=== PATIENT | male | born 1960 ===

== ENCOUNTER 2023-11-27 02:22 | Inpatient (IN) | payer OTHER, SELFPAY ==
[2023-11-27] MEDS ORDERED: Ipratropium/Albuterol 3 ML NEB ONE (02:54)
[2023-11-27 03:36] LABS: Base Excess -12.5 mEq/L (-2.0 to +3.0); Hematocrit-VBG 30 % (42.0-52.0); Hemoglobin (Hb) 10.2 g/dL (13.1-17.2); pH (venous) 7.292 (7.32-7.43)
[2023-11-27 03:37] LABS: Chloride (VBG) 105 mmol/L (98-106); Sodium 134 mmol/L (133-146)
[2023-11-27 03:38] LABS: Actual Bicarbonate (HCO3v) 12.6 mEq/L (22-28)
[2023-11-27] MEDS ORDERED: Ibuprofen 200 MG TAB ONE (03:45)
[2023-11-27 03:54] LABS: Hemoglobin 9.2 g/dL (14.0-18.0); Manual Diff?? YES; Mean Corpuscular HGB CONC 31.7 g/dL (32.0-36.0); Mean Corpuscular Hemoglobin 33.6 pg (27.0-31.0); Mean Corpuscular Volume 105.8 fl (78.0-98.0); Mean Platelet Volume 12.1 fL (7.4-10.4); Red Blood Cell (RBC) Count 2.74 mill/uL (4.70-6.10); White Blood Cell (WBC) Count 8.4 10x3/uL (4.8-10.8)
[2023-11-27 04:17] LABS: ALT (SGPT) 60 U/L (8-55); AST (SGOT) 63 U/L (5-34); Albumin 1.6 g/dL (3.4-4.8); Alkaline Phosphatase 103 U/L (40-110); Anion Gap 19 mmol/L (10-20); BUN (Urea Nitrogen) 47 mg/dL (8.4-25.7); Bilirubin, Total 9.7 mg/dL (0.2-1.2); Calc. Creatinine Clearance 0 mL/min (70-130); Carbon Dioxide 12 mmol/L (23-31); Chloride 106 mmol/L (98-107); Estimated GFR 31; Globulin 3.6 g/dL (2.4-3.5); Lipase 46 U/L (8-78); Magnesium 1.4 mg/dL (1.6-2.6); Protein, Total 5.2 g/dL (5.8-8.1); Sodium 133 mmol/L (136-145)
[2023-11-27 04:18] LABS: Troponin I 0.063 ng/mL (< 0.028)
[2023-11-27 04:21] LABS: Critical Call Chem-Lactate NUR.JLS2@0421; Critical Call Chemistry NUR.JLS2@0421; Glucose 50 mg/dL (80-115)
[2023-11-27] MEDS ORDERED: Dextrose 10% in Water 250 ML ONE ×2 (04:26→06:36)
[2023-11-27 04:28] LABS: SARS-CoV-2 NAA Rapid Test DETECTED (NotDetected)
[2023-11-27] MEDS ORDERED: NOREPINEPHRINE 8 MG/250 ML-D5W 250 ML ONE (04:54)
[2023-11-27] MEDS ORDERED: Sodium Chloride 0.9% 100 ML ONE (04:55)
[2023-11-27] MEDS ORDERED: Cefepime 2 GM VIAL ONE (04:55)
[2023-11-27 05:45] LABS: Delete Auto Diff?? YES
[2023-11-27 06:18] LABS: Anisocytosis MODERATE=16-30 cells HPF (0-5); Band 7 % (5-11); Burr Cells MARKED = >16 cells HPF (0-1); CellaVision Operator ID LAB.JMM; Eosinophils 1 % (0-10); Large Platelets 5.7 % (0-5); Lymphocytes 7 % (21-51); Macrocytosis MODERATE=16-30 cells HPF (0-5); Metamyelocyte 24 % (0-0); Monocytes 4 % (0-10); Myelocyte 13 % (0-0); Neutrophil 42 % (42-75); Nucleated RBC (Manual Ct) 1 % (0); Platelet Adequacy Comment Significant decrease; Platelet Count 47 10x3/uL (130-400); Poikilocytosis MARKED = >30 cells HPF (0-5); Polychromasia MODERATE = 3-4 cells HPF (0-2); RBC Morphology 2; Reactive Lymphocytes 3 % (0-10); Total Cell Count 123
[2023-11-27] MEDS ORDERED: Dextrose 5% in Water 1,000 ML IV PRN (06:26)
[2023-11-27] MEDS ORDERED: Glucagon 1 MG/ML KIT IM PRN (06:26)
[2023-11-27] MEDS ORDERED: Vancomycin 1 GM/200 ML (FROZEN) BAG ONE (06:26)
[2023-11-27] MEDS ORDERED: NOREPINEPHRINE 8 MG/250 ML-D5W 250 ML IVPB SCH ×2 (06:30→08:05)
[2023-11-27] MEDS ORDERED: DOPamine 400 MG/D5W 250 ML 250 ML ONE ×2 (06:33→14:57)
[2023-11-27] MEDS ORDERED: Hydrocortisone Sod Succ/PF 100 mg/2 ml Vial ONE (06:33)
[2023-11-27 07:09] LABS: Critical Call Chem-Lactate NUR.JLS2@0707; Lactic Acid 8.2 mmol/L (0.5-2.2)
[2023-11-27] MEDS ORDERED: DOPamine 400 MG/D5W 250 ML 250 ML IVPB SCH ×5 (07:15→15:30)
[2023-11-27 07:16] LABS: Troponin I 0.029 ng/mL (< 0.028)
[2023-11-27] MEDS ORDERED: Vasopressin 20 UNITS in Sodium Chloride 0.9% 50 ML IV PRN (07:51)
[2023-11-27] MEDS ORDERED: Electrolyte Replacement Protocol 1 EACH IVPB ONE (07:51)
[2023-11-27] MEDS ORDERED: Ipratropium/Albuterol 3 ML NEB NEB PRN (07:58)
[2023-11-27] MEDS ORDERED: Dextrose 10% in Water 1,000 ML IV SCH (08:00)
[2023-11-27] MEDS ORDERED: Furosemide 40 MG (4 mL) VIAL SLOW IVP SCH ×2 (08:00→14:00)
[2023-11-27] MEDS ORDERED: Sodium Bicarb 50 mEq/50 ML VIAL IVP SCH (08:00)
[2023-11-27] MEDS ORDERED: Vasopressin 20 UNITS in Sodium Chloride 0.9% 50 ML IV SCH (08:00)
[2023-11-27] MEDS ORDERED: Hydrocortisone Sod Succ/PF 100 mg/2 ml Vial IVP SCH ×2 (08:00→14:00)
[2023-11-27] MEDS ORDERED: Magnesium 2 GM/50 ML(in water) 4 GM in Premix 1 BAG IVPB SCH (08:00)
[2023-11-27] MEDS ORDERED: Sodium Bicarb 50 mEq/50 ML VIAL ONE ×2 (08:07→13:54)
[2023-11-27] MEDS ORDERED: DOBUTamine 500 mg/250 ml 250 ML ONE (08:12)
[2023-11-27] MEDS ORDERED: DOBUTamine 500 mg/250 ml 250 ML IVPB SCH (08:15)
[2023-11-27] MEDS ORDERED: Albumin 25% 25 GM (100 mL) BOT IVPB SCH (08:15)
[2023-11-27 08:30] VITALS: BMI 39.9
[2023-11-27] MEDS ORDERED: Magnesium Sulfate In Water 4 GM in Premix 1 BAG IVPB SCH (08:30)
[2023-11-27] MEDS ORDERED: DOBUTamine 500 mg/250 ml 500 MG in Premix 1 BAG IVPB SCH (08:30)
[2023-11-27] MEDS ORDERED: Heparin 5,000 UNITS/ML VIAL SC SCH (09:00)
[2023-11-27] MEDS ORDERED: Electrolyte Replacement Protocol FS PRN (09:15)
[2023-11-27] MEDS ORDERED: REMDESIVIR 200 MG in Sodium Chloride 0.9% 250 ML 210 ML IV SCH (09:15)
[2023-11-27] MEDS ORDERED: Vancomycin (BATCH) 1.5 GM in Premix 1 BAG IVPB SCH (09:15)
[2023-11-27] MEDS ORDERED: Piperacillin/Tazobactam 4.5 GM in Sodium Chloride 0.9% 100 ML IVPB SCH (09:37)
[2023-11-27 09:51] LABS: Prothrombin Time 54.2 sec (12.0-14.7)
[2023-11-27 09:53] LABS: PTT 41.3 sec (22.9-36.1)
[2023-11-27] MEDS ORDERED: Piperacillin/Tazobactam 3.375 GM in Sodium Chloride 0.9% 100 ML IVPB SCH ×2 (10:00→14:00)
[2023-11-27] MEDS: NOREPINEPHRINE 8 MG/250 ML-D5W 250 ML IVPB SCH ×4 (10:09→18:06)
[2023-11-27 10:13] LABS: D-Dimer Test 10.59 *mcg/mL (0.27-0.43)
[2023-11-27 10:29] LABS: Fibrinogen 39 mg/dL (253-463)
[2023-11-27] MEDS ORDERED: Lorazepam 2 MG/ML VIAL SLOW IVP PRN (10:59)
[2023-11-27] MEDS ORDERED: Lorazepam 2 MG/ML VIAL SLOW IVP SCH (11:00)
[2023-11-27 11:09] LABS: Glucose 43 mg/dL (80-115)
[2023-11-27] MEDS ORDERED: fentaNYL 50 mcg/mL 1 mL Vial SLOW IVP PRN (11:31)
[2023-11-27] MEDS: Dextrose 50% Abboject 50 ML SYRINGE SLOW IVP PRN ×2 (11:35→14:44)
[2023-11-27] MEDS ORDERED: fentaNYL 50 mcg/mL 1 mL Vial SLOW IVP SCH (11:45)
[2023-11-27] MEDS: Albumin 25% 25 GM (100 mL) BOT IVPB SCH ×2 (11:51→17:13)
[2023-11-27] MEDS ORDERED: Scopolamine 1 mg/72 hour Patch TD SCH (12:00)
[2023-11-27] MEDS ORDERED: Cefepime 2 GM in Sodium Chloride 0.9% 100 ML IVPB SCH (14:10)
[2023-11-27 14:37] LABS: Glucose 47 mg/dL (80-115)
[2023-11-27] MEDS ORDERED: EPINEPHrine 4 MG in Dextrose 5% in Water 250 ML IV SCH (15:15)
[2023-11-27 15:19] VITALS: TEMP 97.9
[2023-11-27] MEDS ORDERED: EPINEPHrine 4 MG in Dextrose 5% in Water 250 ML IVP SCH (15:30)
[2023-11-27] MEDS ORDERED: FLU VACC QS2023-24(6MOS UP)/PF 60 MCG/0.5 ML SYRINGE IM ONE (15:45)
[2023-11-28] MEDS ORDERED: REMDESIVIR 100 MG in Sodium Chloride 0.9% 250 ML 230 ML IV SCH (09:00)
[2023-11-28] MEDS ORDERED: Vancomycin (BATCH) 1.25 GM in Premix 1 BAG IVPB SCH (09:00)
== END 2023-11-27 18:19 | disposition expired | DRG 871 ==
LOC: ERS 02:22 → CCU 06:00
PROVIDERS: ADMIT Family Medicine; ATTEND Family Medicine
PROC: 02H633Z Insertion of Infusion Device into Right Atrium, Percutaneous Approach (ICD-10-PCS; principal; 2023-11-27)
PROC: 3E033XZ Introduction of Vasopressor into Peripheral Vein, Percutaneous Approach (ICD-10-PCS; 2023-11-27)
PROC: 3E03329 Introduction of Other Anti-infective into Peripheral Vein, Percutaneous Approach (ICD-10-PCS; 2023-11-27)
PROC: 5A09357 Assistance with Respiratory Ventilation, Less than 24 Consecutive Hours, Continuous Positive Airway Pressure (ICD-10-PCS; 2023-11-27)
DX: A41.50 Gram-negative sepsis, unspecified (principal); D65 Disseminated intravascular coagulation [defibrination syndrome]; J12.82 Pneumonia due to coronavirus disease 2019; R65.21 Severe sepsis with septic shock; J96.01 Acute respiratory failure with hypoxia; U07.1 COVID-19; K72.00 Acute and subacute hepatic failure without coma; I21.A1 Myocardial infarction type 2; E87.20 Acidosis, unspecified; E87.1 Hypo-osmolality and hyponatremia; N17.9 Acute kidney failure, unspecified; I13.0 Hypertensive heart and chronic kidney disease with heart failure and stage 1 through stage 4 chronic kidney disease, or unspecified chronic kidney disease; T82.838A Hemorrhage due to vascular prosthetic devices, implants and grafts, initial encounter; Z51.5 Encounter for palliative care; Z66 Do not resuscitate; Z87.891 Personal history of nicotine dependence; D53.9 Nutritional anemia, unspecified; E16.2 Hypoglycemia, unspecified; I50.9 Heart failure, unspecified; K72.10 Chronic hepatic failure without coma; N18.9 Chronic kidney disease, unspecified; E83.42 Hypomagnesemia; R57.0 Cardiogenic shock; E87.70 Fluid overload, unspecified; K70.30 Alcoholic cirrhosis of liver without ascites; F10.10 Alcohol abuse, uncomplicated; Y92.230 Patient room in hospital as the place of occurrence of the external cause; Y84.8 Other medical procedures as the cause of abnormal reaction of the patient, or of later complication, without mention of misadventure at the time of the procedure; Z88.1 Allergy status to other antibiotic agents
CPT/HCPCS: 36415; 36416; 71045; 76700; 80053; 82533; 82805; 83605; 83690; 83735; 83880; 84443; 84484; 85025; 85379; 85384; 85610; 85730; 87040; 87077; 87149; 87186; 93005; 94640; 94660; J0171; J0692; J1250; J1265; J1720; J1940; J2060; J2543; J3010; J3370-JW; J3475; J3490; J7070; J7620; J7999; P9047